=== PATIENT | female | born 1950 | race Caucasian/White ===

== ENCOUNTER → 2017-09-25 13:24 | Outpatient (CLI) | payer MEDICARE, OTHER, SELFPAY | PROVIDERS: PCP Family Medicine; Visit Provider Family Medicine | DX: Z78.0 Asymptomatic menopausal state (principal) | CPT/HCPCS: 77080 ==

== ENCOUNTER → 2017-11-18 12:27 | Outpatient (CLI) | payer MEDICARE, OTHER, SELFPAY ==
--- NOTE | 2017-11-18 | DI.MG.S_ITS ---
BILATERAL DIGITAL DIAGNOSTIC MAMMOGRAM 3D/2D SHORT-TERM FOLLOW-UP: 11/18/2017 CLINICAL: Patient returns for 6 month follow up of right breast, due for bilateral exam. Comparison is made to exams dated: 11/29/2016 ultrasound, 11/14/2016 mammogram, 11/13/2015 mammogram, and 10/18/2014 mammogram - [facility]. The tissue of both breasts is heterogeneously dense. This may lower the sensitivity of mammography. There is an oval equal density asymmetry with an indistinct margin in the right breast at 12 o'clock middle depth. This is not significantly changed. No other significant masses, calcifications, or other findings are seen in either breast. IMPRESSION: INCOMPLETE: NEEDS ADDITIONAL IMAGING EVALUATION The oval equal density asymmetry in the right breast is indeterminate. An ultrasound is recommended. This exam was interpreted at Station ID: [id number]. NOTE: For mammograms, a report in lay terms will be sent to the patient. Approximately 15% of breast malignancies will not be visualized mammographically. In the management of a palpable breast mass, a negative mammogram must not discourage biopsy of a clinically suspicious lesion. Electronically Signed By: Douglas daily/abida:11/18/2017 13:31:16 letter sent: Need Ultrasound ACR BI-RADS Category 0: Incomplete 3340F
--- NOTE | 2017-11-18 | DI.US.S_ITS ---
LIMITED ULTRASOUND OF RIGHT BREAST: 11/18/2017 CLINICAL: 6 month follow-up of cysts. Comparison is made to exams dated: 11/18/2017 mammogram, 05/16/2017 ultrasound, 05/16/2017 mammogram, 11/29/2016 ultrasound, and 11/29/2016 mammogram - [facility]. Color flow and real-time ultrasound of the right breast 1 o'clock region were performed on the areas of interest. There is 0.5 cm x 0.2 cm x 0.3 cm oval complicated cyst in the right breast at 1 o'clock anterior depth. This oval complicated cyst is hypoechoic with a well-defined boundary, internal echoes, and posterior acoustic enhancement. This abnormality is not significantly changed. Color flow imaging demonstrates that there is no vascularity present. IMPRESSION: PROBABLY BENIGN The 0.5 cm x 0.2 cm x 0.3 cm oval complicated cyst in the right breast is probably benign. A follow-up mammogram and an ultrasound in 12 months is recommended.(11/18/2018) to demonstrate 2 year stability. This exam was interpreted at Station ID: [id number]. Electronically Signed By: Douglas Martin M.D. ddjoshua/:11/18/2017 14:31:24 letter sent: Followup Recommended Ultrasound BI-RADS: 3 Probably benign
== END ==
PROVIDERS: PCP Family Medicine; Visit Provider Family Medicine
DX: R92.8 Other abnormal and inconclusive findings on diagnostic imaging of breast (principal); N60.01 Solitary cyst of right breast
CPT/HCPCS: 76642; 77066; G0279

== ENCOUNTER → 2018-12-16 14:52 | Outpatient (CLI) | payer MEDICARE, OTHER, SELFPAY ==
--- NOTE | 2018-12-16 | DI.MG.S_ITS ---
BILATERAL DIGITAL DIAGNOSTIC MAMMOGRAM 3D/2D: 12/16/2018 CLINICAL: Patient returns for a 24 month follow up of the right breast. Due Bilaterally. Comparison is made to exams dated: 11/18/2017 mammogram, 11/18/2017 ultrasound, 05/16/2017 ultrasound, and 11/14/2016 mammogram - [facility]. There are scattered fibroglandular elements in both breasts. The previously described oval asymmetry in the right breast central to the nipple anterior depth that was first visualized in October 2016 appears much less prominent and decreased in size. No other significant masses, calcifications, or other findings are seen in either breast. IMPRESSION: INCOMPLETE: NEEDS ADDITIONAL IMAGING EVALUATION The previously described oval asymmetry in the right breast is much less conspicuous, but remains indeterminate. Further evaluation by sonogram is recommended which is scheduled to immediately follow this examination. This exam was interpreted at Station ID: [id number]. NOTE: For mammograms, a report in lay terms will be sent to the patient. Approximately 15% of breast malignancies will not be visualized mammographically. In the management of a palpable breast mass, a negative mammogram must not discourage biopsy of a clinically suspicious lesion. Electronically Signed By: Geovanni Escobar M.D. aty/:12/16/2018 15:24:42 ACR BI-RADS Category 0: Incomplete 3340F
--- NOTE | 2018-12-16 | DI.US.S_ITS ---
ULTRASOUND OF RIGHT BREAST: 12/16/2018 CLINICAL: 12 month follow-up of right breast. Comparison is made to exams dated: 12/16/2018 mammogram, 11/18/2017 ultrasound, 11/18/2017 mammogram, 05/16/2017 ultrasound, 05/16/2017 mammogram, and 11/29/2016 [facility]. Color flow and real-time ultrasound of the right breast were performed. Augustin scale images of the real-time examination were reviewed. There is a stable to slightly decreased size of 0.4 cm x 0.2 cm x 0.3 cm oval complicated cyst in the right breast at 12 o'clock anterior depth 4 cm from the nipple. This oval complicated cyst is hypoechoic with a well-defined boundary, internal echoes, and posterior acoustic enhancement. Color flow imaging demonstrates that there is no vascularity present. IMPRESSION: BENIGN There is no sonographic evidence of malignancy. The stable 0.4 cm x 0.2 cm x 0.3 cm oval hypoechoic cyst in the right breast is consistent with a benign complicated cyst as it has demonstrated two years of stability. Return to annual mammogram screening schedule is recommended. This exam was interpreted at Station ID: [id number]. Electronically Signed By: Geovanni Escobar M.D. aty/:12/16/2018 16:12:40 letter sent: Normal Exam Ultrasound BI-RADS: 2 Benign
== END ==
PROVIDERS: PCP Family Medicine; Visit Provider Family Medicine
DX: R92.8 Other abnormal and inconclusive findings on diagnostic imaging of breast (principal); N60.01 Solitary cyst of right breast
CPT/HCPCS: 76642; 77066; G0279

== ENCOUNTER → 2019-12-20 10:47 | Outpatient (CLI) | payer MEDICARE, OTHER, SELFPAY ==
--- NOTE | 2019-12-20 10:50 | DI.MG.S_ITS ---
BILATERAL DIGITAL SCREENING MAMMOGRAM 3D/2D WITH CAD: 12/20/2019 CLINICAL: Routine screening. Comparison is made to exams dated: 12/16/2018 mammogram, 11/18/2017 mammogram, and 05/16/2017 mammogram - [facility]. The tissue of both breasts is heterogeneously dense. This may lower the sensitivity of mammography. Current study was also evaluated with a Computer Aided Detection (CAD) system. No significant masses, calcifications, or other findings are seen in either breast. There has been no significant interval change. IMPRESSION: NEGATIVE There is no mammographic evidence of malignancy. A 1 year screening mammogram is recommended. This exam was interpreted at Station ID: [id number]. NOTE: For mammograms, a report in lay terms will be sent to the patient. Approximately 15% of breast malignancies will not be visualized mammographically. In the management of a palpable breast mass, a negative mammogram must not discourage biopsy of a clinically suspicious lesion. Electronically Signed By: Geovanni treadwell/abida:12/20/2019 20:44:22 letter sent: Normal Exam ACR BI-RADS Category 1: Negative 3341F
== END ==
PROVIDERS: PCP Family Medicine; Referring Provider Family Medicine; Visit Provider Family Medicine
DX: Z12.31 Encounter for screening mammogram for malignant neoplasm of breast (principal)
CPT/HCPCS: 77063; 77067

== ENCOUNTER → 2020-04-27 10:55 | Outpatient (CLI) | payer MEDICARE, OTHER, SELFPAY ==
[2020-04-27] MEDS: COVID-19 VACC, Ad26(JANSSEN)/PF 0.5 ML IM (11:00)
== END ==
PROVIDERS: Visit Provider Internal Medicine
DX: Z23 Encounter for immunization (principal)
CPT/HCPCS: 0031A; 91303

== ENCOUNTER → 2021-02-06 11:46 | Outpatient (CLI) | payer MEDICARE, OTHER, SELFPAY ==
--- NOTE | 2021-02-06 11:48 | DI.MG.S_ITS ---
BILATERAL DIGITAL SCREENING MAMMOGRAM 3D/2D WITH CAD: 02/06/2021 CLINICAL: Routine screening. Comparison is made to exams dated: 12/20/2019 mammogram, 12/16/2018 mammogram, 11/18/2017 mammogram, and 11/29/2016 mammogram - [facility]. The tissue of both breasts is heterogeneously dense. This may lower the sensitivity of mammography. Current study was also evaluated with a Computer Aided Detection (CAD) system. No significant masses, calcifications, or other findings are seen in either breast. There has been no significant interval change. IMPRESSION: NEGATIVE There is no mammographic evidence of malignancy. A 1 year screening mammogram is recommended. This exam was interpreted at Station ID: [id number]. NOTE: For mammograms, a report in lay terms will be sent to the patient. Approximately 15% of breast malignancies will not be visualized mammographically. In the management of a palpable breast mass, a negative mammogram must not discourage biopsy of a clinically suspicious lesion. Electronically Signed By: Douglas daily/abida:02/06/2021 12:38:49 letter sent: Normal Exam ACR BI-RADS Category 1: Negative 3341F
== END ==
PROVIDERS: PCP Family Medicine; Referring Provider Family Medicine; Visit Provider Family Medicine
DX: Z12.31 Encounter for screening mammogram for malignant neoplasm of breast (principal)
CPT/HCPCS: 77063; 77067

== ENCOUNTER → 2021-10-04 12:58 | Outpatient (CLI) | payer MEDICARE, OTHER, SELFPAY ==
--- NOTE | 2021-10-17 16:49 | DIAB.MNT ---
Initial Diabetes Medical Nutrition Therapy Assessment Name: Priti Dean Date: 10/04/21 Time: 110-2p Dx: Type II Diabetes Provider: Reuben Marcos presents for initial visit. H/o very well managed DM with HgA1c 5.5-5.6% on 500mg Metformin. Endorses FH of Dm with mother. Endorses retinal bleeding at 180#, unknown HgA1c at that time. Since that time has lost 40# per report through diet and exercise. 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 States her father had glaucoma w/o DM. Endorses stress with caring for spouse parents. States she is not sleeping well and sees BG go up when sleep is disrupted. Diet Recall: 630a: one cup oats with berries or egg with ham and veggies or cream of wheat with berries or ww toast with PB 1130a: SALESPERSON NECKTIES plain yogurt with fruit 430p: salad 5-530p: grilled steak or chx x 3-4 oz with sweet potato or no starch with veggies 730p: nothing or popcorn Beverages; 24oz coffee, 36oz sparkling water, ETOH x 1 wine serving q couple weeks Anthropometrics: Ht: 61 Wt: 143# reported Physical Activity: Walking 4 x per week, fitness classes 5 days per week x 3 classes each day Self-Monitoring Blood Glucose: FBG checks daily. All in goal. no pc readings. May not need to check given HgA1c and FBG in goal. Could check to determine how foods impact her BG but this is for educational purposes and preference for her. Date Pre Post Pre Post Pre Post HS 09/28 91 09/29 84 09/30 83 10/01 83 10/02 84 10/03 78 10/04 95 Diabetes Medications: 500mg Metformin in the am Pertinent Labs: HgA1c 5.8% Past Medical History: (reported) HLD Glaucoma PDM since 2018 Nutrition Rx: Carbohydrates: Daily: Meal: Snack: Nutrition Diagnosis: - Predicted inadequate fluid intake r/t limited water intake due to nutrition knowledge deficit aeb diet recall - Nutrition related knowledge deficit r/t needing more info on pro recs and impact on digestion aeb pt report Intervention: This participant was very receptive. Provided appropriate educational handouts. Discussed the following topics: Completed intake assessment. Discussed barriers to care. Stress and BG Stress management Pathophysiology of insulin resistance Nutrition recs for carbs, fiber, protein, and fluids BG checks FBG and pc as a tool Created SMART goals for patient self-care and success. Goals: Can try checking 1-2 hours after breakfast Add protein to breakfast Add 8-12oz water in the morning Follow-up: JESSY DINH follow-up prn Kerrie Yang RDN, FABRIZIO Certified Diabetes Care and Service Desk Associate P: [phone] Thank you for this referral
== END ==
PROVIDERS: PCP Family Medicine; Referring Provider Family Medicine; Visit Provider Family Medicine
DX: E11.9 Type 2 diabetes mellitus without complications (principal); Z71.3 Dietary counseling and surveillance
CPT/HCPCS: 97802

== ENCOUNTER → 2022-02-13 15:29 | Outpatient (CLI) | payer MEDICARE, OTHER, SELFPAY ==
--- NOTE | 2022-02-13 | DI.MG.S_ITS ---
BILATERAL DIGITAL SCREENING MAMMOGRAM 3D/2D WITH CAD: 02/13/2022 CLINICAL: Routine screening. Comparison is made to exams dated: 02/06/2021 mammogram, 12/20/2019 mammogram, and 11/18/2017 mammogram - [facility]. Both breasts are heterogeneously dense, which may obscure small masses (category c / 51-75% glandular tissue). Current study was also evaluated with a Computer Aided Detection (CAD) system. No significant masses, calcifications, or other findings are seen in either breast. There has been no significant interval change. IMPRESSION: NEGATIVE There is no mammographic evidence of malignancy. A 1 year screening mammogram is recommended. Based on the Tyrer Cuzick model (a risk assessment model) the patient's lifetime risk is 7.8% and her 10 year risk is 4.6%. According to the ACR, ACS, and NCCN guidelines, an annual breast MRI exam along with mammogram is recommended if the patient's lifetime risk is 20% or greater. This exam was interpreted at Station ID: [id number]. NOTE: For mammograms, a report in lay terms will be sent to the patient. Approximately 15% of breast malignancies will not be visualized mammographically. In the management of a palpable breast mass, a negative mammogram must not discourage biopsy of a clinically suspicious lesion. Electronically Signed By: Yury Castro M.D., jr/abida:02/13/2022 15:54:08 letter sent: Normal Exam ACR BI-RADS Category 1: Negative 3341F
== END ==
PROVIDERS: PCP Family Medicine; Referring Provider Family Medicine; Visit Provider Family Medicine
DX: Z12.31 Encounter for screening mammogram for malignant neoplasm of breast (principal)
CPT/HCPCS: 77063; 77067

== ENCOUNTER → 2022-02-20 14:19 | Outpatient (CLI) | payer MEDICARE, OTHER, SELFPAY | PROVIDERS: PCP Family Medicine; Referring Provider Family Medicine; Visit Provider Family Medicine | DX: Z78.0 Asymptomatic menopausal state (principal); Z13.820 Encounter for screening for osteoporosis | CPT/HCPCS: 77080 ==

== ENCOUNTER → 2023-02-15 07:41 | Outpatient (CLI) | payer MEDICARE, OTHER, SELFPAY ==
--- NOTE | 2023-02-15 | DI.MG.S_ITS ---
BILATERAL DIGITAL SCREENING MAMMOGRAM 3D/2D WITH CAD: 02/15/2023 CLINICAL: Routine screening. Comparison is made to exams dated: 02/13/2022 mammogram, 02/06/2021 mammogram, and 12/20/2019 mammogram - [facility]. Both breasts are heterogeneously dense, which may obscure small masses (category c / 51-75% glandular tissue). Current study was also evaluated with a Computer Aided Detection (CAD) system. No significant masses, calcifications, or other findings are seen in either breast. There has been no significant interval change. IMPRESSION: NEGATIVE There is no mammographic evidence of malignancy. A 1 year screening mammogram is recommended. Based on the Tyrer Cuzick model (a risk assessment model) the patient's lifetime risk is 7.3% and her 10 year risk is 4.7%. According to the ACR, ACS, and NCCN guidelines, an annual breast MRI exam along with mammogram is recommended if the patient's lifetime risk is 20% or greater. This exam was interpreted at Station ID: [id number]. NOTE: For mammograms, a report in lay terms will be sent to the patient. Approximately 15% of breast malignancies will not be visualized mammographically. In the management of a palpable breast mass, a negative mammogram must not discourage biopsy of a clinically suspicious lesion. Electronically Signed By: Geovanni treadwell/abida:02/18/2023 07:56:16 letter sent: Normal Exam ACR BI-RADS Category 1: Negative 3341F
== END ==
LOC: MAMMO 07:43
PROVIDERS: PCP Family Medicine; Referring Provider Family Medicine; Visit Provider Family Medicine
DX: Z12.31 Encounter for screening mammogram for malignant neoplasm of breast (principal)
CPT/HCPCS: 77063; 77067

== ENCOUNTER → 2024-02-19 09:50 | Outpatient (CLI) | payer MEDICARE, OTHER, SELFPAY ==
--- NOTE | 2024-02-19 09:52 | DI.MG.S_ITS ---
BILATERAL DIGITAL SCREENING MAMMOGRAM 3D/2D WITH CAD: 02/19/2024 CLINICAL: Routine screening. Comparison is made to exams dated: 02/15/2023 mammogram, 02/13/2022 mammogram, and 02/06/2021 mammogram - [facility]. The breasts are heterogeneously dense, which may obscure small masses (category c / 51-75% glandular tissue). Current study was also evaluated with a Computer Aided Detection (CAD) system. No significant masses, calcifications, or other findings are seen in either breast. There has been no significant interval change. IMPRESSION: NEGATIVE There is no mammographic evidence of malignancy. A 1 year screening mammogram is recommended. Based on the Tyrer Cuzick model (a risk assessment model) the patient's lifetime risk is 7.0% and her 10 year risk is 4.8%. According to the ACR, ACS, and NCCN guidelines, an annual breast MRI exam along with mammogram is recommended if the patient's lifetime risk is 20% or greater. This exam was interpreted at Station ID: [id number]. NOTE: For mammograms, a report in lay terms will be sent to the patient. Approximately 15% of breast malignancies will not be visualized mammographically. In the management of a palpable breast mass, a negative mammogram must not discourage biopsy of a clinically suspicious lesion. Electronically Signed By: Geovanni treadwell/abida:02/19/2024 12:05:33 letter sent: Normal Exam ACR BI-RADS Category 1: Negative
== END ==
PROVIDERS: PCP Family Medicine; Referring Provider Family Medicine; Visit Provider Family Medicine
DX: Z12.31 Encounter for screening mammogram for malignant neoplasm of breast (principal); R92.333 Mammographic heterogeneous density, bilateral breasts
CPT/HCPCS: 77063; 77067

== ENCOUNTER → 2024-09-02 12:56 | Outpatient (CLI) | payer MEDICARE, OTHER, SELFPAY ==
--- NOTE | 2024-09-02 12:58 | DI.RAD.S_ITS ---
PROCEDURE: XR DEXA AXIAL SKELETON INDICATIONS: Postmenopausal COMPARISON: [facility], , XR DEXA AXIAL SKELETON, 02/20/2022, 14:33. FINDINGS: Lumbar Spine: Bone mineral density 0.993 g/cm2, T score -0.5, comparison to priors cannot be performed due to dissimilar scan types/analysis methods. Left Femoral Neck: Bone mineral density 0.751 g/cm2, T score -0.9. Left Hip: Bone mineral density 0.925 g/cm2, T score -0.1, comparison to priors cannot be performed due to dissimilar scan type/analysis methods. Fracture Risk Calculation (when applicable): 10-year fracture risk of a major osteoporotic fracture 9.1 percent (14 percent with prior fracture) and of a hip fracture 1.0 percent (1.6 percent with prior fracture). (T score greater or equal to -1.0 to: NORMAL) (T score from -1.1 to -2.4: OSTEOPENIA) (T score less than or equal to -2.5: OSTEOPOROSIS) IMPRESSION: Normal bone mass. Follow-up guidelines as follows: Osteoporosis: Consider a repeat DEXA and Vertebral Fracture Assessment (VFA) exam in 2 years or sooner if medically necessary, to reassess this patient's status. Osteopenia: Consider a repeat DEXA in 2-3 years to reassess this patient's status, or if there is a new clinical indication. Normal: Consider a repeat DEXA in 5 years or sooner, or if there is a new clinical indication. All treatment decisions require clinical judgment and consideration of individual patient factors, including patient preferences, comorbidities, previous drug use, risk factors not captured in the FRAX model (e.g., frailty, falls, vitamin D deficiency, increased bone turnover, interval significant decline in bone density ) and possible under- or over-estimation of fracture risk by FRAX. In addition, the NOF Guide recommends that FDA-approved medical therapies be considered in postmenopausal women and men age >= 50 years with a: * Hip or vertebral (clinical or morphometric) fracture * T-score of <=-2.5 at the spine or hip * Ten-year fracture probability by FRAX of >= 3% for hip fracture or >=20% for major osteoporotic fracture. Approved by: Manisha Enriquez M.D.,Ph.D. on 09/03/2024 at 9:16
== END ==
PROVIDERS: PCP Family Medicine; Referring Provider Family Medicine; Visit Provider Family Medicine
DX: Z13.820 Encounter for screening for osteoporosis (principal); Z78.0 Asymptomatic menopausal state
CPT/HCPCS: 77080